=== PATIENT | male | born 1940 | race Native Hawaiian/Other Pacific Islander ===

== ENCOUNTER 2018-07-01 19:14 | Emergency (ER) | payer OTHER ==
[~2018-07-01] VITALS: Ht 182.9 cm; Wt 103.4 kg
[2018-07-01] MEDS ORDERED: LIPITOR10 MG PO (19:42)
[2018-07-01] MEDS ORDERED: BAYER ASA325 M1 PO (19:42)
[2018-07-01] MEDS ORDERED: TRICOR145 M1 PO (19:43)
[2018-07-01] MEDS ORDERED: UNITH DIRECT50 MCG PO (19:43)
[2018-07-01] MEDS ORDERED: LISI20TA31 PO (19:44)
[2018-07-01] MEDS ORDERED: TRAMADOL HYDROC50 MG PO (19:44)
[2018-07-01] MEDS ORDERED: XARELTO20 MG PO (19:45)
[2018-07-01 22:05] VITALS: TEMP 97.8
[2018-07-01 23:38] LABS: PLATELET COUNT 256 K/uL (142-355)
[2018-07-01 23:45] LABS: POTASSIUM 4.2 mmol/L (3.6-5.2)
[2018-07-02 01:57] LABS: PARTIAL THROMBOPLASTIN TIME 33.9 SECONDS (24.5-33.6)
[2018-07-02 04:18] VITALS: BP 203/84
== END 2018-07-02 04:19 | disposition short-term general hospital (02) ==
LOC: ED 19:14
PROVIDERS: Internal Medicine
DX: I61.8 Other nontraumatic intracerebral hemorrhage (principal)
CPT/HCPCS: 36415; 80053; 81000; 85027; 85610; 85730; 96374; 96376; 99285; J0360